=== PATIENT | female | born 1960 | race Caucasian/White ===

== ENCOUNTER 2016-11-03 12:28 | Outpatient (CLI) | payer OTHER ==
[~2016-11-03 12:28] MED LIST: MULTIPLE VITAMIN PO; NORCO1 TA1 PO; VITAMIN D-31000 UNIT PO
--- NOTE | 2016-11-03 14:04 | DIAGNOSTIC IMAGING REPORT ---
PROCEDURE: XR HIP INJECTION (PRE MR) INDICATION: Left hip pain. TECHNIQUE: The patient was advised of the usual risks and complications including infection, bleeding and allergy. Supine position. Following sterile preparation and 1% lidocaine anesthetic, fluoroscopic guidance (1.1 minutes, 214.82 mGy) was utilized to place a 22-gauge spinal needle into the anterior lateral left hip joint. An 8.1 mL solution (2 mL Isovue 200, 2 mL 1% lidocaine, 2 mL 0.5% Marcaine, 2 mL normal saline, 0.1 mL gadolinium) was infused. Subsequently, 2 mL 40 mg/mL Kenalog was infused and the needle was withdrawn. COMPARISON: Comparison made radiographs of the pelvis and left hip from [facility] on 10/23/2016. FINDINGS: Four AP views. Confirmation of intraarticular injection. Mild degenerative changes of the left hip joint. Arthrogram is normal The patient tolerated the procedure reasonably well and was transferred to MRI in satisfactory condition with instructions to resume routine activity the following day, and to call for any untoward symptoms (increasing pain/swelling). IMPRESSION: 1. Successful fluoroscopically guided diagnostic/therapeutic injection of the left hip joint (pre MRI). 2. Mild degenerative changes of the left hip joint. Otherwise negative arthrogram of the left hip. 3. MR arthrography is pending.
--- NOTE | 2016-11-06 15:03 | DIAGNOSTIC IMAGING REPORT ---
PROCEDURE: MR LOWER EXT JOINT W/CONT-LT INDICATION: Left hip pain. TECHNIQUE: Intra-articular contrast/gadolinium injected earlier in the day. T1 and STIR coronal images of the pelvis. High-resolution T1 fat sat and PD fat sat images of the left hip in sagittal, axial, and coronal planes. COMPARISON: Comparison is made to advance arthrogram earlier today (11/03/2016). FINDINGS: There is a small amount of intra-articular air. There is mild chondromalacia and degenerative changes of the left hip joint. In addition, findings suggest probable tear of the anterior superior cartilaginous labrum. There is a small amount of air in the ventral left hip joint. There is insertional tendinosis of the lateral soft tissues overlying the greater trochanter, originating from gluteus medius tendon. Osseous pelvis is normal. IMPRESSION: 1. Small amount of intra-articular air. No evidence of loose body. 2. Mild chondromalacia and degenerative changes of the left hip joint. 3. Findings suggest tear of the anterior superior cartilaginous labrum. 4. There is insertional tendinosis of the greater trochanter, most likely originates from the gluteus medius tendon.
== END 2016-11-03 23:00 ==
LOC: XR SRH 12:28
PROC: BQ31YZZ Magnetic Resonance Imaging (MRI) of Left Hip using Other Contrast (ICD-10-PCS; principal; 2016-11-03)
DX: M16.12 Unilateral primary osteoarthritis, left hip (principal); M70.62 Trochanteric bursitis, left hip

== ENCOUNTER 2017-01-15 16:40 | Emergency (ER) | payer OTHER ==
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
--- NOTE | 2017-01-15 17:29 | ED ORDER SUMMARY ---
..... Patient: ABISAI CALDERÓN OrderSheet [facility] VisitID: [id number] [address] [place] [address] 56y, F Registration Date/Time: 01/15/2017 ORDER SHEET Weight: 67.1 kg (stated) Allergies: No Known Drug Allergy GENERAL ORDERS: MEDICATION ORDERS: Toradol IM 60 mg (NOW) (17:24 01/15/2017 Danielle Villatoro) (17:45 LWhalen R.N.) Hydrocodone-APAP PO 5/325 mg (NOW, HIGH ALERT MEDICATION) (17:24 01/15/2017 Danielle Villatoro) (17:46 LWhalkaiden R.N.) IV FLUIDS: ORDER SHEET NOTES: [Electronically signed by Keyona De León R.N. (18:54 01/15/2017)] [Electronically signed by Michael Ortega Dr. (06:27 01/18/2017)] [Electronically locked/signed by Keyona De León R.N. (18:54 01/15/2017)]
--- NOTE | 2017-01-15 17:29 | ED ORDER SUMMARY ---
..... Patient: ABISAI CALDERÓN OrderSheet [facility] VisitID: [id number] [address] [place] [address] 56y, F Registration Date/Time: 01/15/2017 ORDER SHEET Weight: 67.1 kg (stated) Allergies: No Known Drug Allergy GENERAL ORDERS: MEDICATION ORDERS: Toradol IM 60 mg (NOW) (17:24 01/15/2017 Danielle Villatoro) (17:45 LWhalen R.N.) Hydrocodone-APAP PO 5/325 mg (NOW, HIGH ALERT MEDICATION) (17:24 01/15/2017 Danielle Villatoro) (17:46 LWhalkaiden R.N.) IV FLUIDS: ORDER SHEET NOTES: [Electronically signed by Keyona De León R.N. (18:54 01/15/2017)] [Electronically signed by Michael Ortega Dr. (06:27 01/18/2017)] [Electronically locked/signed by Keyona De León R.N. (18:54 01/15/2017)]
--- NOTE | 2017-01-18 06:27 | ED MED RECONCILIATION SUMMARY ---
Patient: ABISAI CALDERÓN Medication Reconciliation Report [facility] VisitID: [id number] [address] [place] [address] 56y, F Registration Date/Time: 01/15/2017 Weight: 67.1 kg Height/Length: 64 in. BMI: 25.4 ALLERGIES: No Known Drug Allergy The patient's Home Medications are listed below: CONTINUE TAKING THE FOLLOWING MEDICATIONS: Hydrocodone-Acetaminophen Oral Lisinopril Oral Multi Complete Oral Naproxen Oral 500 mg, 2x a day Omeprazole Oral Vit D-Vit E-Safflower Oil External The source(s) of the original Home Medication information: Not obtained. The following Medications were given to the patient in the Emergency Department: Toradol [IM] IM 60 mg, administered: 01/15/2017 5:30:00 PM Hydrocodone-APAP [PO] PO 1 tab, administered: 01/15/2017 5:46:00 PM The following Medications were prescribed to the patient: Acetaminophen (available over the counter): take according to label instructions. -- Michael Ortega Dr.
--- NOTE | 2017-01-18 06:27 | ED MAR SUMMARY ---
..... Medication Administration Record [facility] [address] [place] [address] Patient: ABISAI CALDERÓN Visit ID: [id number] 56y, F Weight: 67.1 kg Height/Length: 64 in BMI: 25.4 ALLERGIES: No Known Drug Allergy Given 17:30 01/15/2017 Keyona De León, RQuianaN. Medication Administered: TORADOL [IM] (KETOROLAC TROMETHAMINE), Dose: 60 mg IM. Medication Ordered: Toradol IM 60 mg (NOW). Given 17:46 01/15/2017 Keyona De León, R.N. Medication Administered: HYDROCODONE-APAP [PO] (HYDROCODONE-ACETAMINOPHEN), Dose: 1 tab 5/325 mg Tablets PO. Medication Ordered: Hydrocodone-APAP PO 5/325 mg (NOW, HIGH ALERT MEDICATION).
--- NOTE | 2017-01-18 06:27 | ED DISCHARGE INSTRUCTIONS ---
Patient: ABISAI CALDERÓN General Instructions [facility] VisitID: [id number] [address] [place] [address] 56y, F Registration Date/Time: 01/15/2017 01/15/2017 16:50 BP: 110/77. HR: 100. RR: 18. O2 saturation: 99%. Temp: 98.8 F. Blood pressure normal. Oxygen saturation normal. Myofascial pain syndrome (left hip, acute exacerbation of chronic). INSTRUCTIONS Warnings: GENERAL WARNINGS: Return or contact your physician immediately if your condition worsens or changes unexpectedly, if not improving as expected, or if other problems arise. Specifically return if pain, vomiting, bleeding, breathing difficulty or fever. Your Current Medications: CONTINUE TAKING THE FOLLOWING MEDICATIONS: Hydrocodone-Acetaminophen Oral. Lisinopril Oral. Multi Complete Oral. Naproxen Oral : 500 mg 2x a day. Omeprazole Oral. Vit D-Vit E-Safflower Oil External. OTC Medications: Acetaminophen (available over the counter): take according to label instructions. Follow-up: Return to the emergency department as needed. Follow up with your doctor in three days. Reason for referral: recheck today's concerns. Summary of care provided to patient via paper. Screening today revealed the patient's blood pressure to be in the normal range. The patient should follow up with a primary care provider for blood pressure management. Understanding of the discharge instructions verbalized by patient. ADDITIONAL INFORMATION Myofascial Pain Syndrome: Fibrositis Your pain is caused by a state of chronic muscle tension. This condition is called by various names: myofascial pain, fibrositis and trigger point pain. This can also be due to mechanical stress (such as working at a computer terminal for long periods; or work that requires repetitive motions of the arms or hands) or emotional stress (such as problems on the job or in your personal life). Sometimes there is no obvious cause. The pain can occur in the area of the muscle spasm or at a site distant to it. For example, spasm of a neck muscle can cause headache. Spasm of the muscle near the shoulder blade can cause pain shooting down the arm. Home Care: Try to identify the factors that may be causing your problem and change them: If you feel thatemotional stressis a cause of your pain, learn methods to deal more effectively with the stress in your life. These may include regular exercise, muscle relaxation techniques, meditation or simply taking time out for yourself. Consult your doctor or go to a local bookstore and review the many books and tapes available on the subject of stress reduction. If you feel that physical stress is a cause for your pain, try to modify any poor work habits. You may use acetaminophen (Tylenol) or ibuprofen (Motrin, Advil) to control pain, unless another medicine was prescribed. [NOTE: If you have chronic liver or kidney disease or ever had a stomach ulcer or GI bleeding, talk with your doctor before using these medicines.] The use of heat to the muscle (hot compress or heating pad) will be helpful to reduce muscle spasm. Some persons get relief with ice packs. Apply an ice pack (crushed or cubed ice in a plastic bag, wrapped in a towel) for 20 minutes at a time as needed. Use the method that feels best to you. Massaging the trigger point and stretching out the muscleare an important parts of prevention and treatment. Trigger point massage can be done by first applying heat to the area to warm and prepare the muscle. Have someone apply steady thumb pressure directly on the knot in the muscle (the most tender point) for 30 seconds. Release the pressure, then massage the surrounding muscle. Repeat the process, applying more pressure to the trigger point each time. Do this up to the limit of pain. With each treatment, the trigger point should become less tender and the pain should decrease. You can apply local pressure to trigger points in the back by lying on the floor with a tennis ball under the trigger point. Follow Up with your doctor as advised or if not improving within the next week. It may be necessary for you to receive physical therapy if you do not respond to home treatment alone. Get Prompt Medical Attention if any of the following occur: If your trigger point is in the chest muscles, observe for pain that becomes more severe, lasts longer, or spreads into your shoulder/arm, neck or back; you develop trouble breathing, sweating, nausea or vomiting in association with chest pain If you develop weakness or numbness in an extremity If your pain worsens, regardless of its location You have been given the following additional information: Myofascial Pain Syndrome (Electronically signed by Michael Ortega Dr. 01/18/2017 6:27)
--- NOTE | 2017-01-18 06:27 | ED MAR SUMMARY ---
..... Medication Administration Record [facility] [address] [address] Patient: ABISAI CALDERÓN Visit ID: [id number] 56y, F Weight: 67.1 kg Height/Length: 64 in BMI: 25.4 ALLERGIES: No Known Drug Allergy Given 17:30 01/15/2017 Keyona De León, RQuianaN. Medication Administered: TORADOL [IM] (KETOROLAC TROMETHAMINE), Dose: 60 mg IM. Medication Ordered: Toradol IM 60 mg (NOW). Given 17:46 01/15/2017 Keyona De León, R.N. Medication Administered: HYDROCODONE-APAP [PO] (HYDROCODONE-ACETAMINOPHEN), Dose: 1 tab 5/325 mg Tablets PO. Medication Ordered: Hydrocodone-APAP PO 5/325 mg (NOW, HIGH ALERT MEDICATION).
--- NOTE | 2017-01-18 06:27 | ED MED RECONCILIATION SUMMARY ---
Patient: ABISAI CALDERÓN Medication Reconciliation Report [facility] VisitID: [id number] [address] [place] [address] 56y, F Registration Date/Time: 01/15/2017 Weight: 67.1 kg Height/Length: 64 in. BMI: 25.4 ALLERGIES: No Known Drug Allergy The patient's Home Medications are listed below: CONTINUE TAKING THE FOLLOWING MEDICATIONS: Hydrocodone-Acetaminophen Oral Lisinopril Oral Multi Complete Oral Naproxen Oral 500 mg, 2x a day Omeprazole Oral Vit D-Vit E-Safflower Oil External The source(s) of the original Home Medication information: Not obtained. The following Medications were given to the patient in the Emergency Department: Toradol [IM] IM 60 mg, administered: 01/15/2017 5:30:00 PM Hydrocodone-APAP [PO] PO 1 tab, administered: 01/15/2017 5:46:00 PM The following Medications were prescribed to the patient: Acetaminophen (available over the counter): take according to label instructions. -- Michael Ortega Dr.
== END 2017-01-15 17:30 | disposition home or self-care (01) ==
LOC: ED SRH 16:40
DX: M79.1 Myalgia (principal); M25.552 Pain in left hip; G89.29 Other chronic pain; Z79.891 Long term (current) use of opiate analgesic; Z79.1 Long term (current) use of non-steroidal anti-inflammatories (NSAID); Z79.899 Other long term (current) drug therapy